=== PATIENT | female | born 1990 | race Caucasian/White ===

== ENCOUNTER 2017-01-25 09:26 | Inpatient (IN) | payer BC, OTHER ==
[~2017-01-25] VITALS: Ht 162.6 cm; Wt 52.2 kg
[2017-01-25] MEDS ORDERED: LOPERAMIDE HCL 2 MG CAPSULE PO PRN ×2 (18:45)
[2017-01-25] MEDS ORDERED: DICYCLOMINE HCL 20 MG TABLET PO PRN (18:45)
[2017-01-25] MEDS ORDERED: MAG HYDROX/AL HYDROX/SIMETH 30 ML LIQUID UDC PO PRN (18:45)
[2017-01-25] MEDS ORDERED: ACETAMINOPHEN 325 MG TABLET PO PRN (18:45)
[2017-01-25] MEDS ORDERED: ONDANSETRON ODT 4 MG TAB.RAPDIS SL PRN (18:45)
[2017-01-25] MEDS ORDERED: MAGNESIUM HYDROXIDE 30 ML LIQUID UDC PO PRN (18:45)
[2017-01-25] MEDS ORDERED: LORAZEPAM 1 MG TABLET PO PRN ×2 (18:45)
[2017-01-25] MEDS ORDERED: IBUPROFEN 600 MG TABLET PO PRN (18:45)
[2017-01-25] MEDS ORDERED: LORAZEPAM 2 MG/1 ML VIAL IM PRN (18:45)
[2017-01-25] MEDS ORDERED: MIRALAX 17 GM POWD.PACK PO PRN (18:45)
[2017-01-25] MEDS ORDERED: diphenhydrAMINE 50 MG CAPSULE PO PRN (18:45)
[2017-01-25] MEDS ORDERED: HYDROXYZINE PAMOATE 25 MG CAPSULE PO PRN (18:45)
[2017-01-25] MEDS ORDERED: ONDANSETRON 4 MG/2 ML VIAL IM PRN (18:45)
[2017-01-25] MEDS ORDERED: METHOCARBAMOL 750 MG TABLET PO PRN (18:45)
--- NOTE | 2017-01-25 19:20 | NUR ---
1919 Preadmission assessment done by day shift RN, Corey Zaidi. ADMISSION NOTE: 26 year old, thinly-built but well-nourished, caucasion female, admitted ambulatory, in his room # 305 for Heroin, Methamphetamine and (prescribed) Xanax withdrawal. Gait is steady. Patient's color is pink and his skin is warm, dry and intact. Patient responds to nurse's greeting and introduction with, " Hi, how are you?" Patient is oriented to person, place, day and her personal situation. Reoriented to date and time. Patient's lung sounds are clear bilaterally and hypoactive bowel sounds are noted X 4 abdominal Quads, per auscultation. Patient moves all her extremities fully WNL. Patient denies any pain and she states that she has a history of Hepatitis C, anxiety, depression, eating disorder and old back injuries, from sports and a fall, years ago. Patient states also that she has had 1 seizure, drug-related, in 2014. Patient states that she is from [facility], where she has a "therapist" by the name of Morteza Sanchze and a PCP by the name of Dr. Quinn. Patient is 5 feet and 4 inches and she weighs 115 lbs. Patient states that she has been to multiple treatment facilities, however she is unable to exactly name them at this time, except for: (1) [facility], September 2015, 2 days, [place], [place] and (2) [facility], " a few years ago", 6 months, [place], [place] Patient uses (1) Heroin daily, snorted or IV, 3 to 4 grams. Last use 01/25/17 3 grams. Patient has been using Heroin on/off "since age 13" (2) Methamphetamine daily, smoked, 1 gram. Last use, 01/25/17, 1 gram. Patient has been using Methamphetamine on/off " for a few years" (3) Xanax, daily, oral, 2 to 4 mg. Last use, 01/25/17, 2.5 mg . Patient states that she has been using Xanax " for a few years and that this drug is prescribed for her. Patient states that her longest period of sobriety was 6 months, " some years ago" . Vital signs are: 97.7-111-16 126/80, O2 Sat 99%, COWS 6. Patient took fluids and sandwich snack. Patient oriented to her room, nurse call light and her immediate surroundings. Patient is cooperative with minimal prompting and she is verbally appropriate for the most part, however she can become easily irritated, uncooperative and slightly agitated, depending on questions asked of her during admit assess. Bed is locked and in lowest position, bed rails are up X 1 and call light within patient's easy reach.
[2017-01-25] MEDS ORDERED: ALBU18HF2 IH (19:32)
[2017-01-25] MEDS ORDERED: CARB12DR OP (19:33)
[2017-01-25 20:00] VITALS: BP 126/80
[2017-01-25 20:23] LABS: *URINE HCG, QUAL NEGATIVE (NEGATIVE)
[2017-01-25 20:30] LABS: *AMPHETAMINE, URINE POSITIVE (NEGATIVE); *BARBITURATE, URINE NEGATIVE (NEGATIVE); *CANNABINOID, URINE NEGATIVE (NEGATIVE); *COCCAINE, URINE NEGATIVE (NEGATIVE); *OPIATE, URINE POSITIVE (NEGATIVE); *PHENCYCLIDINE SCREEN,URINE NEGATIVE (NEGATIVE)
[2017-01-25] MEDS ORDERED: LORAZEPAM 1 MG TABLET PO SCH (21:00)
[2017-01-26] VITALS: BP 102/61
[2017-01-26 04:00] VITALS: BP 101/59
--- NOTE | 2017-01-26 06:30 | NUR ---
0630 Patient had an uneventful night, sleeping a total of 5 hours. She had 2 voids and no stools. Total intake was 1.183 ml p.o. No prn medications given this shift. Marko/ARCELIA afebrile, COWS 3 at 0400. Patient is presently sleeping comfortably with eyes closed and respirations even, unlabored at 12. Addendum: 01/26/17 at 0746 by TIFFANY ROONEY RN CIWA is 3, not COWS.
--- NOTE | 2017-01-26 07:05 | NUR ---
Patient is sleeping soundly with eyes closed and respirations quiet, deep, unlabored at 12. COWS, CIWA deferred.
--- NOTE | 2017-01-26 07:06 | NUR ---
Start Of Shit Report received from shift mgr. Pt is a 26 y/o female admitted on 01/25/17 for Heroin, Methamphetamines and Xanax dependency/withdrawals. Pt is full code regular diet on fall and seizure precautions. Denies any food or drug allergies. Pt is placed on a 5 day Ativan and a 5 day Subutex taper. Pt reports Hx of seizures, last one at age 17 d/t d/w. Pt received no PRN medication last night per shift mgr nurse. Her last COWS 3 and CIWA 3. Fluids encouraged to facilitate the detox process.Upon assessment pt laying in bed, eyes closed unlabored even breathing. All safety measures in place per hospital policy. Bed in lowest position, side rails up x2, call-light within reach. Will continue to monitor and provide support.
[2017-01-26 08:00] VITALS: BP 111/66
[2017-01-26 08:03] LABS: BASOPHILS % (AUTO) 0.6 % (0.0-2.0); EOSINOPHILS # (AUTO) 0.6 K/uL (0.0-0.7); EOSINOPHILS % (AUTO) 11.4 % (0.0-7.0); HEMATOCRIT 30.1 % (37-47); HEMOGLOBIN 9.8 G/DL (12.0-16.0); LYMPHOCYTES # (AUTO) 1.6 K/UL (0.8-4.8); LYMPHOCYTES % (AUTO) 32.3 % (20.5-51.5); MEAN CORPUSCULAR HEMOGLOBIN 28.5 UUG (27.0-31.0); MEAN CORPUSCULAR HGB CONC 33 g/dL (32.0-37.0); MEAN CORPUSCULAR VOLUME 87.3 FL (81.0-99.0); MONOCYTES # (AUTO) 0.3 K/UL (0.1-1.30); MONOCYTES % (AUTO) 5.6 % (0.0-11.0); NEUTROPHILS # (AUTO) 2.6 K/UL (1.8-8.9); NEUTROPHILS % (AUTO) 50.1 % (38.5-71.5); PLATELET COUNT (AUTO) 174 K/UL (150-450); RED BLOOD CELL COUNT(AUTO) 3.45 MIL/UL (4.2-5.4); WHITE BLOOD COUNT (AUTO) 5.1 K/UL (4.0-11.2)
[2017-01-26] MEDS ORDERED: TUBERCULIN,PURIF.PROT.DERIV. 5 TU/0.1 ML TEST ID ONE (09:00)
[2017-01-26 09:03] LABS: ALANINE AMINOTRANSFERASE 16 U/L (14-59); ALKALINE PHOSPHATASE 80 U/L (50-136); AMYLASE 26 U/L (25-115); ASPARTATE AMINOTRANSFERASE 17 U/L (15-37); BILIRUBIN,TOTAL 0.2 mg/dL (0.2-1.0); CARBON DIOXIDE 28 mmol/L (21-32); CHLORIDE 103 mmol/L (98-107); CREATININE 0.7 mg/dL (0.6-1.3); GLUCOSE 99 mg/dL (74-106); LIPASE 75 U/L (73-393); MAGNESIUM 2.2 mg/dL (1.8-2.4); TOTAL PROTEIN, SERUM 7.2 g/dL (6.4-8.2); UREA NITROGEN, BLOOD 9 mg/dL (7-18)
[2017-01-26 09:08] LABS: ETHANOL < 3 MG/DL (0-0)
[2017-01-26] MEDS: LORAZEPAM 1 MG TABLET PO SCH ×4 (09:52→20:24)
[2017-01-26] MEDS: MULTIVITAMINS,THERAPEUTIC TABLET PO SCH (09:52)
[2017-01-26] MEDS: BUPRENORPHINE HCL 2 MG TAB.SUBL SL SCH ×4 (09:52→20:25)
[2017-01-26 11:01] LABS: THYROID STIMULATING HORMONE 0.625 mIU/mL (0.358-3.740)
[2017-01-26 12:00] VITALS: BP 114/72
[2017-01-26 16:00] VITALS: BP 122/82
--- NOTE | 2017-01-26 17:55 | NUR ---
Held Medication Upon assessment pt was too sedated, Pt's 1700 scheduled medications held. MD contacted and notified. all needs met will continue to monitor.
[2017-01-26] MEDS ORDERED: ALBUTEROL INH PRN (19:00)
--- NOTE | 2017-01-26 19:15 | NUR ---
START OF SHIFT Received 26 year old female admitted on 01/25/17 for Xanax, Heroin and Methamphetamine dependency. Pt is full code with NKA. Pt reports PMHx of Hep C, history of back injuries x2, and anxiety and depression. She reports using Heroin (snort/IV) 3-4 grams daily since age 13. Last dose was 3 grams on 01/25/17. Xanax 2-4 mg daily for a few years. Last dose was 2.5 mg on 01/25/17. And Methamphetamine 1 gram daily for a few years. Last dose was 1 gram on 01/25/17. She reports a drug related seizure at age 17. She is currently receiving 5 day Ativan and 5 day Subutex taper and tolerating well. Per endorsement, pt did not receive or request PRN medications. His 1700 dose was held d/t pt was too sedated. Pt is alert and oriented x4, breathing is even and unlabored. Pt is safe with bed locked in lowest position, side rails up x2 and call light within reach. Will continue to monitor.
[2017-01-26] MEDS: CLONIDINE HCL 0.1 MG TABLET PO PRN (19:24)
--- NOTE | 2017-01-26 19:24 | NUR ---
PRN CLONIDINE Pt complains of anxiety/agitation. Pt observed with piloerection, chills and sweats. PRN Clonidine administered as ordered. Breathing even and unlabored, safety measures in place. Will continue to monitor effectiveness.
--- NOTE | 2017-01-26 19:34 | NUR ---
End Of Shift Report given to lozenge dough mixer nurse. Pt is a 26 y/o female admitted on 01/25/17 for Heroin, Methamphetamines and Xanax dependency/withdrawals. Pt is full code regular diet on fall and seizure precautions. Denies any food or drug allergies. continues on a 5 day Ativan and a 5 day Subutex taper. Pt reports Hx of seizures, last one at age 17 d/t d/w. Pt received no PRN medication during day shift. Her last COWS 7 and CIWA 5. Fluids encouraged to facilitate the detox process. Detox medication effective at reducing withdrawal symptoms. Patient encouraged to attend group therapies/sessions to learn new coping skills to recent relapse, patient denies SI/HI. Pt ate all of her meals her total fluid intake was 855mlwith 2 void and 0 bowel movement Pts scheduled 1700 medications held because pt was too sedated notified and aware Safety measures in place. Call light kept within reach. Patient endorsed to lozenge dough mixer nurse, all pertinent information discussed
[2017-01-26 20:00] VITALS: BP 123/77
--- NOTE | 2017-01-26 20:24 | NUR ---
PRN CLONIDINE REASSESSMENT PRN Clonidine effective. Pt states " yeah I feel a little better" Breathing even and unlabored, respirations 16, safety measures in place. Will continue to monitor.
[2017-01-27] VITALS: BP 100/64
--- NOTE | 2017-01-27 | NUR ---
COWS/CIWA DEFERRED COWS/CIWA deferred. Pt lying in bed with eyes closed noted to be asleep. Respirations 16, breathing is even and unlabored. Safety measures in place. Will continue to monitor.
[2017-01-27 04:00] VITALS: BP 115/70
--- NOTE | 2017-01-27 07:05 | NUR ---
START OF SHIFT Pt is a 26 year old female admitted on 01/25/17 for Xanax, Heroin and Methamphetamine dependency. Pt is full code with NKA. Pt reports PMHx of Hep C, history of back injuries x2, and anxiety and depression. She reports using Heroin (snort/IV) 3-4 grams daily since age 13. She is currently on day 2/5 of her Ativan and Subutex taper and tolerating well. She experienced s/s of withdrawal such as piloerection, chills, sweats, anxiety and agitation. At 1924 she received PRN Clonidine. She slept a total of 9 hrs, Intake: 240 mL Void:0 BM:0 COWS: 10, CIWA: 5. Pt remains alert and oriented x4, breathing is even and unlabored. Pt is safe with bed locked in lowest position, side rails up x2 and call light within reach. Endorsed to oncoming shift. Addendum: 01/27/17 at 0706 by JAXSON MENDES RN ERROR IN CHARTING
--- NOTE | 2017-01-27 07:07 | NUR ---
Start of Shift Notes: Received patient in her room. Laying in bed with eyes closed. Chest movement noted. Breathing even and unlabored. No SOB noted. Skin warm and dry to touch. Abdomen soft and non-distended with (+) BS in all 4 quadrants. No complains of N/V/D or constipation noted. Noted with complains of abdominal cramping. Bladder non-distended. No complains of dysuria noted. Voids independently. Ambulatory ad brandon with steady gait. Patient is a 26 year old female admitted for opiate and methamphetamine and BZO dependence who was placed on a 5-day Ativan and 5-day Subutex taper as ordered. No adverse reactions noted. Has past medical hx of Hep C, Hx of 2 back injuries, hx of anxiety, depression. On fall and seizure precautions. NKA. FULL CODE. Regular diet. Educated patient on the current plan of care for the day and the medication regimen. Encouraged oral fluid intake and encouraged group participation to learn new skills to prevent relapse. Will continue to monitor closely.
[2017-01-27 08:00] VITALS: BP 103/50
[2017-01-27] MEDS: LORAZEPAM 1 MG TABLET PO SCH ×3 (08:19→20:05)
[2017-01-27] MEDS: CLONIDINE HCL 0.1 MG TABLET PO PRN ×2 (08:20→19:36)
[2017-01-27] MEDS: BUPRENORPHINE HCL 2 MG TAB.SUBL SL SCH ×3 (08:20→20:05)
[2017-01-27] MEDS: MULTIVITAMINS,THERAPEUTIC TABLET PO SCH (08:20)
--- NOTE | 2017-01-27 08:20 | NUR ---
PRN Robaxin/Bentyl and Clonidine 0.1mg PO given: COWS 16; CIWA 10. Patient presented with 7/10 body aches, abdominal cramps. FL 88 resting, sweating, anxiety, agitation, restless legs and piloerection of the skin. Medicated patient with Robaxin 750 mg PO, Bentyl 20 mg PO and Clonidine 0.1mg PO as ordered. Will monitor for effectiveness.
--- NOTE | 2017-01-27 09:20 | NUR ---
Re-assessment: Per patient, PRN Robaxin, Clonidine and Bentyl were effective in reducing muscle aches, anxiety, sweating, chills, hot flashes and abdominal cramps. COWS 13/CIWA 7. made aware.
[2017-01-27] MEDS ORDERED: BUPRENORPHINE HCL 2 MG TAB.SUBL SL ONE (10:00)
[2017-01-27] MEDS ORDERED: LORAZEPAM 1 MG TABLET PO ONE (10:00)
[2017-01-27] MEDS ORDERED: CLONIDINE HCL 0.1 MG TABLET PO ONE (10:00)
--- NOTE | 2017-01-27 10:06 | NUR ---
Subutex 4mg SL x 1 and Ativan 1 mg PO x 1 given: COWS 13/CIWA 7. Dr. Good aware with orders to administer x 1 Subutex 4 mg and Ativan 1 mg PO as ordered. Will monitor for effectiveness.
--- NOTE | 2017-01-27 10:36 | NUR ---
Re-assessment: Subutex 4mg SL x 1 COWS 9. Less anxiety, less restlessness, and pupil size normal. x 1 Subutex 4mg SL was effective in reducing patient's withdrawal symptoms.
--- NOTE | 2017-01-27 11:06 | NUR ---
Re-assessment: x1 Ativan 1 mg PO Patient's CIWA 3. Less anxiety noted, less anxiety. PRN Ativan was effective in reducing patient's withdrawal symptoms.
[2017-01-27 12:00] VITALS: BP 97/57
--- NOTE | 2017-01-27 13:29 | NUR ---
Psych Consult: New orders Patient was seen and examined by Dr. Goodman with orders to start patient on Seroquel 150 mg for sleep. Orders noted and carried out.
[2017-01-27 14:43] LABS: HEPATITIS B SURFACE AG Negative (Negative)
--- NOTE | 2017-01-27 15:17 | NUR ---
Hep C results: Patient's hep C results received and shows ">11.0H." Patient revealed upon admission that she has hx of being Hep C positive.
[2017-01-27 16:00] VITALS: BP 103/54
[2017-01-27 16:48] LABS: BASOPHILS % (AUTO) 0.5 % (0.0-2.0); EOSINOPHILS # (AUTO) 0.3 K/uL (0.0-0.7); EOSINOPHILS % (AUTO) 7.4 % (0.0-7.0); HEMATOCRIT 34.6 % (37-47); HEMOGLOBIN 11.3 G/DL (12.0-16.0); LYMPHOCYTES # (AUTO) 1.8 K/UL (0.8-4.8); LYMPHOCYTES % (AUTO) 38.2 % (20.5-51.5); MEAN CORPUSCULAR HEMOGLOBIN 28.7 UUG (27.0-31.0); MEAN CORPUSCULAR HGB CONC 33 g/dL (32.0-37.0); MEAN CORPUSCULAR VOLUME 87.8 FL (81.0-99.0); MONOCYTES # (AUTO) 0.2 K/UL (0.1-1.30); MONOCYTES % (AUTO) 4.3 % (0.0-11.0); NEUTROPHILS # (AUTO) 2.3 K/UL (1.8-8.9); NEUTROPHILS % (AUTO) 49.6 % (38.5-71.5); PLATELET COUNT (AUTO) 229 K/UL (150-450); RED BLOOD CELL COUNT(AUTO) 3.95 MIL/UL (4.2-5.4); WHITE BLOOD COUNT (AUTO) 4.6 K/UL (4.0-11.2)
[2017-01-27 17:33] LABS: CREATININE 0.8 mg/dL (0.6-1.3); MAGNESIUM 1.9 mg/dL (1.8-2.4)
--- NOTE | 2017-01-27 18:56 | NUR ---
End of Shift Notes: Patient is a 26 year old female admitted for opiate/methamphetamine and BZO dependence who was placed on a 5-day Ativan and 5-day Subutex taper as ordered. Patient is on her 2nd day of her taper and tolerating well. No adverse reactions noted. Has past medical hx of hep C, back injuries x 2, anxiety and depression. Prior to admission, patient was using 3-4 grams of Heroin, 1 gram of methamphetamine and 2-4mg of Xanax. VS monitored closely q 4 hours. No significant abnormalities noted. Withdrawal symptoms were closely monitored. Initial COWS 16/CIWA 10 patient presented with piloerection of the skin, muscle aches and pains, anxiety, agitation, restlessness, pupil dilation, and abdominal cramps. Mediated patient with Robaxin, Bentyl and Clonidine at 0820 with help after 1 hour. Patient was given x 1 extra dose of Subutex 4 mg SL and Ativan 1 mg PO for COWS 13, CIWA 7 with help after 1 hour. Last COWS 5/CIWA 3. Per patient Subutex and Ativan has been helping her with her withdrawal symptoms. Unable to participate in group and therapy sessions due to her withdrwal symptoms. Oral intake poor. All needs met and attended. Will continue to monitor closely.
--- NOTE | 2017-01-27 19:15 | NUR ---
START OF SHIFT Received 26 year old female admitted on 01/25/17 for Xanax, Heroin and Methamphetamine dependency. Pt is full code with NKA. Pt reports PMHx of Hep C, history of back injuries x2, and anxiety and depression. She reports using Heroin (snort/IV) 3-4 grams daily since age 13. Last dose was 3 grams on 01/25/17. Xanax 2-4 mg daily for a few years. Last dose was 2.5 mg on 01/25/17. And Methamphetamine 1 gram daily for a few years. Last dose was 1 gram on 01/25/17. She reports a drug related seizure at age 17. She is currently receiving 5 day Ativan and 5 day Subutex taper and tolerating well. Per endorsement, pt received PRN medications of Robaxin, Bentyl and Clonidine. She also has a new order for routine Seroquel 150 mg. Pt is alert and oriented x4, breathing is even and unlabored. Pt is safe with bed locked in lowest position, side rails up x2 and call light within reach. Will continue to monitor.
--- NOTE | 2017-01-27 19:36 | NUR ---
PRN CLONIDINE Pt complains of anxiety, agitation, sweats and chills. PRN Clonidine administered as ordered. Breathing is even and unlabored, safety measures in place. Will continue to monitor effectiveness of medication.
[2017-01-27 20:00] VITALS: BP 105/63
[2017-01-27] MEDS: QUETIAPINE FUMARATE 100 MG TABLET PO SCH (20:05)
[2017-01-27] MEDS: GABAPENTIN 300 MG CAPSULE PO SCH (20:05)
--- NOTE | 2017-01-27 20:36 | NUR ---
PRN CLONIDINE REASSESSMENT PRN Clonidine effective. Pt states " I feel a lot better" Pt appears less anxious/agitated. Breathing even and unlabored,respirations 16, safety measures in place. Will continue to monitor.
[2017-01-28] VITALS: BP 99/68
[2017-01-28 04:00] VITALS: BP 101/66
--- NOTE | 2017-01-28 05:17 | NUR ---
PRN VISTARIL Pt complains of anxiety and is restless in bed. PRN Vistaril administered as ordered. Breathing even and unlabored, safety measures in place. Will monitor effectiveness.
--- NOTE | 2017-01-28 06:17 | NUR ---
PRN VISTARIL REASSESSMENT PRN Vistaril effective. Pt lying in bed with eyes closed noted to be asleep. No facial grimacing noted. Breathing even and unlabored, safety measures in place. Will monitor.
--- NOTE | 2017-01-28 07:10 | NUR ---
END OF SHIFT Pt is a 26 year old female admitted on 01/25/17 for Xanax, Heroin and Methamphetamine dependency. Pt is full code with NKA. She is currently on day 3 of her 5 day Ativan and 5 day Subutex taper and tolerating well. At 1936 pt received PRN Clonidine. At 0517 she received PRN Vistaril. Pt observed with withdrawal symptoms of chills, diaphoresis, fatigue and anxiety, but reports that taper medications are effective in relieving her symptoms. She slept a total of 9 hrs, Intake:1124 mL Void:x2 BM:0 COWS:6 CIWA:4. Pt remains alert and oriented x4, breathing is even and unlabored. Pt is safe with bed locked in lowest position, side rails up x2 and call light within reach. Will endorse to oncoming shift.
--- NOTE | 2017-01-28 07:11 | NUR ---
Start of Shift Notes: Received patient in her room. Laying in bed with eyes closed. Chest movement noted. Breathing even and unlabored. No SOB noted. Skin warm and dry to touch. Abdomen soft and non-distended with (+) BS in all 4 quadrants. No complains of N/V/D or constipation noted. Noted with complains of abdominal cramping. Bladder non-distended. No complains of dysuria noted. Voids independently. Ambulatory ad brandon with steady gait. Patient is a 26 year old female admitted for opiate and methamphetamine and BZO dependence who was placed on a 5-day Ativan and 5-day Subutex taper as ordered. No adverse reactions noted. Has past medical hx of Hep C, Hx of 2 back injuries, hx of anxiety, depression. On fall and seizure precautions. NKA. FULL CODE. Regular diet. Educated patient on the current plan of care for the day and the medication regimen. Encouraged oral fluid intake and encouraged group participation to learn new skills to prevent relapse. Per endorsement from night nurse, patient slept for 9 hours. PRN Vistaril and PRN Clonidine was given during the night. Will continue to monitor closely.
[2017-01-28 08:00] VITALS: BP 91/55
[2017-01-28] MEDS ORDERED: BUPRENORPHINE HCL 2 MG TAB.SUBL SL SCH (09:00)
[2017-01-28] MEDS: MULTIVITAMINS,THERAPEUTIC TABLET PO SCH (09:20)
[2017-01-28] MEDS: LORAZEPAM 1 MG TABLET PO SCH ×4 (09:20→20:38)
[2017-01-28] MEDS: GABAPENTIN 300 MG CAPSULE PO SCH ×3 (09:20→20:38)
[2017-01-28 12:00] VITALS: BP 101/62
[2017-01-28] MEDS ORDERED: BUPRENORPHINE HCL 2 MG TAB.SUBL SL ONE (12:00)
--- NOTE | 2017-01-28 12:39 | NUR ---
Subutex 4 mg SL given x 1: Patient's COWS increased from 5 to 9. Presented with restless legs, muscle aches, chills, and hot flashes. Medicated patient with x 1 dose of Subutex 4 mg SL per MD.
--- NOTE | 2017-01-28 13:09 | NUR ---
Re-assessment: COWS 6. Less restlessness and less anxiety noted. Subutex 4 mg SL x 1 was effective.
[2017-01-28] MEDS: BUPRENORPHINE HCL 2 MG TAB.SUBL SL SCH ×2 (14:30→20:38)
[2017-01-28] MEDS: BACLOFEN 10 MG TABLET PO SCH ×2 (14:30→20:38)
[2017-01-28 16:00] VITALS: BP 105/56
--- NOTE | 2017-01-28 18:46 | NUR ---
End of Shift Notes: Patient is a 26 year old female admitted for opiate/methamphetamine and BZO dependence who was placed on a 5-day Ativan and 5-day Subutex taper as ordered. Patient is on her 2nd day of her taper and tolerating well. No adverse reactions noted. Has past medical hx of hep C, back injuries x 2, anxiety and depression. Prior to admission, patient was using 3-4 grams of Heroin, 1 gram of methamphetamine and 2-4mg of Xanax. VS monitored closely q 4 hours. No significant abnormalities noted. Withdrawal symptoms were closely monitored. Initial COWS 5/CIWA 4 mild muscle aches and pains, anxiety, restlessness, pupil dilation. Patient was given x 1 extra dose of Subutex 4 mg SL at 1239 for COWS 9 with hel after 30 min. Last COWS 4/CIWA 2. Per patient Subutex and Ativan has been helping her with her withdrawal symptoms. Unable to participate in group and therapy sessions due to her withdrwal symptoms. Oral intake fair. All needs met and attended. Will continue to monitor closely.
--- NOTE | 2017-01-28 19:15 | NUR ---
START OF SHIFT Received 26 year old female admitted on 01/25/17 for Xanax, Heroin and Methamphetamine dependency. Pt is full code with NKA. Pt reports PMHx of Hep C, history of back injuries x2, and anxiety and depression. She reports using Heroin (snort/IV) 3-4 grams daily since age 13. Last dose was 3 grams on 01/25/17. Xanax 2-4 mg daily for a few years. Last dose was 2.5 mg on 01/25/17. And Methamphetamine 1 gram daily for a few years. Last dose was 1 gram on 01/25/17. She reports a drug related seizure at age 17. She is currently receiving 5 day Ativan and 5 day Subutex taper and tolerating well. Per endorsement, pt received one time order of Subutex 4 mg at 12:30. Pt is alert and oriented x4, breathing is even and unlabored. Pt is safe with bed locked in lowest position, side rails up x2 and call light within reach. Will continue to monitor.
[2017-01-28 20:00] VITALS: BP 106/62
[2017-01-28] MEDS: QUETIAPINE FUMARATE 100 MG TABLET PO SCH (20:38)
--- NOTE | 2017-01-28 22:39 | NUR ---
PRN BENADRYL Pt complains of inability to fall asleep. PRN Benadryl administered as ordered. Breathing even and unlabored, safety measures in place. Will continue to monitor effectiveness.
--- NOTE | 2017-01-28 23:39 | NUR ---
PRN BENADRYL REASSESSMENT PRN medication effective. Pt is lying in bed with eyes closed noted to be asleep. No facial grimacing. Respirations 16, breathing is even and unlabored. Safety measures in place. Will continue to monitor.
[2017-01-29] VITALS: BP 119/74
[2017-01-29 04:00] VITALS: BP 110/70
--- NOTE | 2017-01-29 04:00 | NUR ---
COWS/CIWA DEFERRED COWS/CIWA deferred d/t pt lying in bed with eyes closed noted to be asleep. Respirations 16, breathing even and unlabored. Pt safe with bed locked in lowest position, side rails up x2 and call light within reach. Will continue to monitor.
--- NOTE | 2017-01-29 07:18 | NUR ---
END OF SHIFT Pt is a 26 year old female admitted on 01/25/17 for Xanax, Heroin and Methamphetamine dependency. Pt is full code with NKA. She continues on her 5 day Ativan and 5 day Subutex taper and is tolerating well. At 2239 she received PRN Benadryl d/t inability to fall asleep. She slept a total of 7 hrs, Intake: 1450 mL, Void: x2, BM: 0. COWS:4, CIWA:2. Pt remains alert and oriented x4, breathing is even and unlabored. Pt is safe with bed locked in lowest position, side rails up x2 and call light within reach. Endorsed to oncoming shift.
--- NOTE | 2017-01-29 07:47 | NUR ---
BEGINNING OF SHIFT Patient endorsement report received from casino shift manager nurse, all pertinent information discussed. patient is a 26 year old Female admitted on 01/28/2017 with admitting Dx: Opiate/BZO dependence. Patient currently ongoing taper of 5 day Ativan and 5 day Subutex taper as ordered, patient is scheduled to begin day 4 of taper this morning. per nights shift patient received PRN:Bendaryl medication effective as per casino shift manager Patient with last ciwa score of: 2 and last cow score of: 4. Patient slept for 7. hours. Patient received awake, alert and oriented x4, educated regarding plan of care for the day and medication regimen. safety measures in place. call light kept with in reach, will continue to monitor.
[2017-01-29 08:01] VITALS: BP 96/60
[2017-01-29] MEDS: GABAPENTIN 300 MG CAPSULE PO SCH ×2 (08:53→14:18)
[2017-01-29] MEDS: MULTIVITAMINS,THERAPEUTIC TABLET PO SCH (08:53)
[2017-01-29] MEDS: BACLOFEN 10 MG TABLET PO SCH ×3 (08:53→21:04)
[2017-01-29] MEDS: BUPRENORPHINE HCL 2 MG TAB.SUBL SL SCH ×3 (08:53→21:04)
[2017-01-29] MEDS: LORAZEPAM 1 MG TABLET PO SCH ×3 (08:53→21:04)
[2017-01-29 12:07] LABS: *HCV QUANT HCV Not Detected IU/mL (.)
[2017-01-29 14:09] VITALS: BP 107/68
[2017-01-29 18:27] VITALS: BP 104/60
--- NOTE | 2017-01-29 18:32 | NUR ---
END OF SHIFT Patient alert and oriented x4, vital signs stable during shift. Patient with admitting Dx: meth/bzo/Opiate dependence. Patient continues on 5 day Ativan taper and 5 day Subutex taper as ordered , and is currently on day 4 of taper, well tolerated, no ASE noted. 0900 assessment patient presented with: mild bone and joint aches, stuffy nose, stomach cramps, irritable, anxiety, barely sweating and mild agitation with cow score of: 5 and ciwa score of: 5. 1300 assessment patient presented with: Heart rate of 92, mild bone and joint aches, moist eyes, mild anxiety, mild agitation, and barely sweating with cow score of: 3 and ciwa score of: 3. 1700 assessment patient presented with: Heart rate of 90 mild bone and joint aches, moist eyes, mild anxiety, mild agitation, and barely sweating with cow score of: 3 and ciwa score of: 3. Patient was administered no PRNs medications during shift. Patient encouraged adequate PO fluid intake as tolerated. Encouraged to attend group therapies/sessions to learn new coping skills to prevent relapse denies any SI/HI. Safety measures in place. call light kept with in reach. all needs met and rendered. patient endorsed to retail shift supervisor nurse, all pertinent information discussed.
[2017-01-29 20:00] VITALS: BP 115/62
--- NOTE | 2017-01-29 20:00 | NUR ---
Start of Shift Pt is a 26 year old female admitted for Opiate/Benzo dependence, placed on 5 day Ativan and 5 day Subutex taper. Pt reported using Heroin via snort/IV 3-4g/daily, Xanax PO 2-4gm/daily and Methamphetamine 1g/daily. PMH: Hep C, anxiety, depression and hx of back injuries. NKA, regular diet, fall/seizure precautions seizure at age 17 d/t withdrawal and full code. Upon assessment, pt presented with anxiety, reports feeling fatigued, reports muscle aches, abdominal cramping, skin noted with moderate sweat, face flushed, respirations even/unlabored, denies SOB/chest pain, bowel sounds active x4, abdomen soft. Safety measures in place, call light within reach, side rails up x2, bed locked and in low position. Will continue to monitor.
[2017-01-29] MEDS ORDERED: GABAPENTIN 300 MG CAPSULE PO SCH (21:00)
[2017-01-29] MEDS: QUETIAPINE FUMARATE 100 MG TABLET PO SCH (21:03)
[2017-01-30] VITALS: BP 118/65
--- NOTE | 2017-01-30 | NUR ---
Vital Signs BP 118/65, pulse 109, respirations 18, Spo2 96%, temp 98.1, no pain 0/10 COWS/CIWA deferred to pt sleeping to assess while pt is awake as ordered. Safety measures in place. Will continue to monitor.
[2017-01-30 04:00] VITALS: BP 119/54
--- NOTE | 2017-01-30 04:00 | NUR ---
Vital Signs BP 119/54, pulse 54, respirations 16, Spo2 97%, temp 97.9, no pain 0/10 COWS/CIWA deferred to pt sleeping to assess while pt is awake as ordered. Safety measures in place. Will continue to monitor.
--- NOTE | 2017-01-30 07:00 | NUR ---
End of Shift Pt is a 26 year old female admitted for Opiate/Benzo dependence, placed on 5 day Ativan and 5 day Subutex taper. Pt reported using Heroin via snort/IV 3-4g/daily, Xanax PO 2-4gm/daily and Methamphetamine 1g/daily. PMH: Hep C, anxiety, depression and hx of back injuries. NKA, regular diet, fall/seizure precautions seizure at age 17 d/t withdrawal and full code. During shift, pt presented with anxiety, reports feeling fatigued, reports muscle aches, abdominal cramping, skin noted with moderate sweat, face flushed scheduled taper medications administered, COWS 6 and CIWA 4. No PRN medications administered. Pt slept for 8 hours, intake of 651 ml PO and voids x2. Safety measures in place, call light within reach, side rails up x2, bed locked and in low position. Endorsed to day shift nurse.
--- NOTE | 2017-01-30 07:57 | NUR ---
BEGINNING OF SHIFT Patient endorsement report received from communications director nurse, all pertinent information discussed. patient is a 26 year old Female admitted on 01/28/2017 with admitting Dx: Opiate/BZO dependence. Patient currently ongoing taper of 5 day Ativan and 5 day Subutex taper as ordered, patient is scheduled to begin day 5 of taper this morning. per nights shift patient received no PRNs During communications director. Patient with last ciwa score of: 4 and last cow score of: 6. Patient slept for 8. hours. Patient received awake, alert and oriented x4, educated regarding plan of care for the day and medication regimen. safety measures in place. call light kept with in reach, will continue to monitor.
[2017-01-30 08:06] VITALS: BP 119/66
[2017-01-30] MEDS: BUPRENORPHINE HCL 2 MG TAB.SUBL SL SCH ×2 (08:54→21:28)
[2017-01-30] MEDS: GABAPENTIN 300 MG CAPSULE PO SCH ×3 (08:54→21:21)
[2017-01-30] MEDS: LORAZEPAM 1 MG TABLET PO SCH ×2 (08:54→21:22)
[2017-01-30] MEDS: MULTIVITAMINS,THERAPEUTIC TABLET PO SCH (08:54)
[2017-01-30] MEDS: BACLOFEN 10 MG TABLET PO SCH ×3 (08:54→21:22)
[2017-01-30] MEDS: CLONIDINE HCL 0.1 MG TABLET PO PRN (11:30)
--- NOTE | 2017-01-30 11:30 | NUR ---
PRN CLONIDINE/ZOFRAN/MIRALAX Patient reported increase in anxiety and agitation, and reported two episodes of emesis and c/o feeling nausea. As per patient c/o feeling constipated. Patient provided with calming reassurance and non pharmacological interventions with no relief, administered clonidine as ordered for anxiety. Administered Zofran for N/V and administered miralax as ordered for constipation, will monitor effectiveness of medication.
--- NOTE | 2017-01-30 12:30 | NUR ---
CLONIDINE/ZOFRAN REASSESSMENT Patient reports feeling calm, no c/o anxiety or agitation, medication was effective. Zofran effective no c/o N/V noted. Per patient no bowel movement, will continue to monitor. patient encouraged increase in PO fluid intake as tolerated.
[2017-01-30 13:08] VITALS: BP 119/76
[2017-01-30] MEDS: CLONIDINE HCL 0.1 MG TABLET PO SCH ×2 (14:48→21:22)
[2017-01-30 17:21] VITALS: BP 127/79
--- NOTE | 2017-01-30 18:58 | NUR ---
END OF SHIFT Patient alert and oriented x4, vital signs stable during shift. Patient with admitting Dx: meth/bzo/Opiate dependence. Patient continues on 5 day Ativan taper and 5 day Subutex taper as ordered , and is currently on day 5 of taper, well tolerated, no ASE noted. 0900 assessment patient presented with: Heart rate of 96, c/o chills, mild bone and joint aches, moist eyes, mild anxiety, mild agitation, and barely sweating with cow score of: 5 and ciwa score of: 4. 1300 assessment patient presented with: heart rate of 90, c/o chills, mild bone and joint aches, moist eyes, mild anxiety, mild agitation, and barely sweating with cow score of: 5 and ciwa score of: 4. 1700 assessment patient presented with: heart rate of 82, c/o chills, mild anxiety , and mild agitation with cow score of: 3 and ciwa score of: 2. Patient was administered PRN: clonidine, and Zofran as ordered, medications with relief, one hour post administration, also administered miralax, endorsed to folder gluer operator nurse, to monitor effectiveness of miralax. Patient encouraged adequate PO fluid intake as tolerated. Encouraged to attend group therapies/sessions to learn new coping skills to prevent relapse denies any SI/HI. Safety measures in place. call light kept with in reach. all needs met and rendered. patient endorsed to folder gluer operator nurse, all pertinent information discussed.
[2017-01-30 20:00] VITALS: BP 120/80
--- NOTE | 2017-01-30 20:00 | NUR ---
Start of Shift Pt is a 26 year old female admitted for Opiate/Benzo dependence, placed on 5 day Ativan and 5 day Subutex taper. Pt reported using Heroin via snort/IV 3-4g/daily, Xanax PO 2-4gm/daily and Methamphetamine 1g/daily. PMH: Hep C, anxiety, depression and hx of back injuries. NKA, regular diet, fall/seizure precautions seizure at age 17 d/t withdrawal and full code. Upon assessment, pt is in emotional volatility, reports feeling anxious, skin noted with moderate sweat, face flushed, respirations even/unlabored, denies SOB/chest pain, bowel sounds active x4, abdomen soft. Safety measures in place, call light within reach, side rails up x2, bed locked and in low position. Will continue to monitor.
[2017-01-30] MEDS: QUETIAPINE FUMARATE 100 MG TABLET PO SCH (21:23)
[2017-01-31] VITALS (7 sets, daily range): BP systolic 98–123; BP diastolic 60–91
--- NOTE | 2017-01-31 | NUR ---
Vital Sign BP 115/67, pulse 84, respirations 20, Spo2 98%, temp 97.6, no pain reported 0/10 CIWA/COWS deferred d/t pt sleeping to ass while pt is awake as ordered. Safety measures in place, will continue to monitor.
--- NOTE | 2017-01-31 04:00 | NUR ---
Vital Sign BP 109/70, pulse 87, respirations 14, Spo2 96%, temp 97.9, no pain reported 0/10 CIWA/COWS deferred d/t pt sleeping - to asses while pt is awake as ordered. Safety measures in place, will continue to monitor.
--- NOTE | 2017-01-31 07:00 | NUR ---
End of Shift Pt is a 26 year old female admitted for Opiate/Benzo dependence, placed on 5 day Ativan and 5 day Subutex taper. Pt reported using Heroin via snort/IV 3-4g/daily, Xanax PO 2-4gm/daily and Methamphetamine 1g/daily. PMH: Hep C, anxiety, depression and hx of back injuries. NKA, regular diet, fall/seizure precautions seizure at age 17 d/t withdrawal and full code. During, pt presented to be in emotional volatility, reported feeling anxious, skin noted with moderate sweat, face flushed scheduled taper medications administered, effective in management of s/s of withdrawal as reported by pt, COWS 3 and CIWA 3. No PRN medications administered during shift. Pt slept for 7 hours, intake of 1355 ml Po and voids x2. Safety measures in place, call light within reach, side rails up x2, bed locked and in low position. Endorsed to day shift nurse.
--- NOTE | 2017-01-31 07:38 | NUR ---
BEGINNING OF SHIFT Patient endorsement report received from shift mechanic nurse, all pertinent information discussed. patient is a 26 year old Female admitted on 01/28/2017 with admitting Dx: Opiate/BZO dependence. Patient completed Ativan and Subutex taper as ordered, will monitor closely during shift. Patient with last ciwa score of: 3 and last cow score of: 3. Patient slept for 7 hours. Patient received no PRNs during shift mechanic. Patient received awake, alert and oriented x4, educated regarding plan of care for the day and medication regimen. safety measures in place. call light kept with in reach, will continue to monitor.
[2017-01-31] MEDS: CLONIDINE HCL 0.1 MG TABLET PO SCH ×4 (09:00→20:22)
[2017-01-31] MEDS ORDERED: BUPRENORPHINE HCL 2 MG TAB.SUBL SL SCH (09:00)
[2017-01-31] MEDS: GABAPENTIN 300 MG CAPSULE PO SCH ×2 (09:04→14:40)
[2017-01-31] MEDS: BACLOFEN 10 MG TABLET PO SCH ×3 (09:04→20:22)
[2017-01-31] MEDS: MULTIVITAMINS,THERAPEUTIC TABLET PO SCH (09:05)
[2017-01-31] MEDS: BUPRENORPHINE HCL 2 MG TAB.SUBL SL SCH ×3 (13:19→20:28)
[2017-01-31] MEDS: KETOROLAC TROMETHAMINE 30 MG INJ IM PRN (14:41)
--- NOTE | 2017-01-31 14:41 | NUR ---
PRN TORADOL Patient c/o increase in pain in back area and bone and joint aches 04/14, provided with non pharmacological with no relief, administered Toradol injection as ordered, well tolerated, will monitor effectiveness.
--- NOTE | 2017-01-31 15:41 | NUR ---
TORADOL REASSESSMENT patient reports medication with relief, current pain level 0/10, will continue to monitor closely.
[2017-01-31] MEDS: LORAZEPAM 1 MG TABLET PO SCH ×2 (16:56→20:21)
--- NOTE | 2017-01-31 18:55 | NUR ---
END OF SHIFT Patient alert and oriented x4, vital signs stable during shift. Patient with admitting Dx: meth/bzo/Opiate dependence. Patient was seen and examined by Dr. shankar, patient completed 5 day Ativan and 5 day Subutex taper. Taper was extended as per Dr. shankar, well tolerated, no ASE noted. 0900 assessment patient presented with: anxiety and irritability with cow score of: 2 and ciwa score of: 3. 1300 assessment patient presented with: heart rate of 85, c/ chills, severe bone and joint aches, irritable, anxiety, barely sweating, and mild agitation, with ciwa score of: 6 and cow score of: 6. 1700 assessment patient presented with: : heart rate of 88, c/ chills, severe bone and joint aches, irritable, anxiety, barely sweating, and mild agitation, with ciwa score of: 6 and cow score of: 6. Patient was administered PRN:Toradol Injection as ordered for severe bone and joint aches, medication effective one hour post administration. Patient encouraged adequate PO fluid intake as tolerated. Encouraged to attend group therapies/sessions to learn new coping skills to prevent relapse denies any SI/HI. Safety measures in place. call light kept with in reach. all needs met and rendered. patient endorsed to application internship nurse, all pertinent information discussed.
--- NOTE | 2017-01-31 20:00 | NUR ---
Start of Shift Pt is a 26 year old female admitted for Opiate/Benzo dependence, placed on 5 day Ativan and 5 day Subutex taper. Pt reported using Heroin via snort/IV 3-4g/daily, Xanax PO 2-4gm/daily and Methamphetamine 1g/daily. PMH: Hep C, anxiety, depression and hx of back injuries. NKA, regular diet, fall/seizure precautions seizure at age 17 d/t withdrawal and full code. Upon assessment, pt reports feeling mildly anxious, however states, "I feel much better today then the days before", reports mild muscle aches, face flushed, respirations even/unlabored, denies SOB/chest pain, bowel sounds active x4, abdomen soft. Safety measures in place, call light within reach, side rails up x2, bed locked and in low position. Will continue to monitor.
[2017-01-31] MEDS: QUETIAPINE FUMARATE 100 MG TABLET PO SCH (20:21)
[2017-01-31] MEDS ORDERED: GABAPENTIN 300 MG CAPSULE PO SCH (21:00)
[2017-02-01] VITALS: BP 139/89
--- NOTE | 2017-02-01 | NUR ---
Vital Sign BP 139/89, pulse 84, respirations 16, Spo2 97%, temp 97.6, no pain reported 0/10 CIWA/COWS deferred d/t pt sleeping - to asses while pt is awake as ordered. Safety measures in place, will continue to monitor.
[2017-02-01 04:00] VITALS: BP 117/78
--- NOTE | 2017-02-01 04:00 | NUR ---
Vital Sign BP 117/78, pulse 85, respirations 14, Spo2 98%, temp 98.1, no pain reported 0/10 CIWA/COWS deferred d/t pt sleeping - to asses while pt is awake as ordered. Safety measures in place, will continue to monitor.
--- NOTE | 2017-02-01 07:00 | NUR ---
End of Shift Pt is a 26 year old female admitted for Opiate/Benzo dependence, placed on 5 day Ativan and 5 day Subutex taper. Pt reported using Heroin via snort/IV 3-4g/daily, Xanax PO 2-4gm/daily and Methamphetamine 1g/daily. PMH: Hep C, anxiety, depression and hx of back injuries. NKA, regular diet, fall/seizure precautions seizure at age 17 d/t withdrawal and full code. During shift, pt reported feeling mildly anxious, reported mild muscle aches, face flushed - scheduled taper medications administered, effective in management of s/s of withdrawal, COWS 5 and CIWA 5. No PRN medications administered during shift. Pt slept for 4hours, intake of 1092 ml PO and voids x2. Safety measures in place, call light within reach, side rails up x2, bed locked and in low position. Endorsed to day shift nurse.
--- NOTE | 2017-02-01 07:15 | NUR ---
Start of shift note SBAR report rcv'd. Pt was admitted for opiate and benzo dependence and methamphetamine abuse. Pt has a PMHx of hep C, anxiety, depression and a back injury. Pt is a full code, on a regular diet and NKA. Pt subutex and ativan taper have recently been extended d/t severe withdrawal symptoms. Pt is currently sleeping in his bed, respirations are even and unlabored, bed is locked in a low position, call light within reach, will continue to monitor pt. All needs addressed at this time.
[2017-02-01 08:00] VITALS: BP 112/66
[2017-02-01] MEDS ORDERED: BUPRENORPHINE HCL 2 MG TAB.SUBL SL SCH (09:00)
[2017-02-01] MEDS ORDERED: LORAZEPAM 1 MG TABLET PO SCH (09:00)
[2017-02-01] MEDS: GABAPENTIN 300 MG CAPSULE PO SCH ×3 (09:59→21:06)
[2017-02-01] MEDS: MULTIVITAMINS,THERAPEUTIC TABLET PO SCH (09:59)
[2017-02-01] MEDS: CLONIDINE HCL 0.1 MG TABLET PO SCH ×3 (09:59→21:05)
[2017-02-01] MEDS: BACLOFEN 10 MG TABLET PO SCH ×3 (10:00→21:05)
--- NOTE | 2017-02-01 10:00 | NUR ---
Late administration Pt slept in late and requested that her medications be given at a later time. Medications administered a few minutes late per pt request. Will continue to monitor pt.
[2017-02-01 12:00] VITALS: BP 113/73
[2017-02-01] MEDS ORDERED: CLON0.1T14 PO (13:39)
[2017-02-01] MEDS ORDERED: DIPH50CA37 PO (13:39)
[2017-02-01] MEDS ORDERED: HYDR-3895 PO (13:39)
[2017-02-01] MEDS ORDERED: DICY20TA28 PO (13:39)
[2017-02-01] MEDS ORDERED: Baclofen PO (13:39)
[2017-02-01] MEDS ORDERED: Gabapentin PO (13:39)
[2017-02-01] MEDS ORDERED: QUET100T PO (13:39)
[2017-02-01] MEDS ORDERED: Ibuprofen PO (13:39)
[2017-02-01] MEDS: DICYCLOMINE HCL 20 MG TABLET PO SCH ×2 (15:29→21:04)
[2017-02-01] MEDS ORDERED: MAGNESIUM CITRATE 296 ML BOTTLE PO ONE ×2 (15:30→20:00)
--- NOTE | 2017-02-01 15:30 | NUR ---
MD communication Pt states that she has pain 6/10 generalized body aches, pt states that she wants her shot of toradol. Educated pt that per MD order, toradol is for pain 8/10 or greater. Offered pt motrin, tylenol and robaxin. Pt refused and requested toradol. Notified Dr Good, gave ok for pt to have one time shot for pain 6/10. Pt also c/o constipation, notified Dr Good, order magnesium citrate PO x 1 now, orders entered, MD unable to enter orders at this time.
--- NOTE | 2017-02-01 15:30 | NUR ---
Pt refused medication Pt did not want to take the magnesium citrate at this time. Medication rescheduled per pt request.
--- NOTE | 2017-02-01 15:45 | NUR ---
PRN administration Pt states that she has generalized body aches and lower back pain of 6/10. Toradol administered to L deltoid. Pt tolerated well. Will continue to monitor pt.
[2017-02-01] MEDS: KETOROLAC TROMETHAMINE 30 MG INJ IM PRN (15:47)
[2017-02-01 16:00] VITALS: BP 128/76
--- NOTE | 2017-02-01 16:15 | NUR ---
Reassessment Pt states that her pain level is now a 4/10 and that she is more comfortable at this time. Will continue to monitor pt. Encouraged pt to rest to allow medication to take full effect.
--- NOTE | 2017-02-01 18:54 | NUR ---
End of shift note Pt was admitted for opiate and benzo dependence and methamphetamine abuse. Pt has a PMHx of hep C, anxiety, depression and a back injury. Pt is a full code, on a regular diet and NKA. Pt is scheduled to discharge tomorrow, pt has not provided urine for discharge UDS at this time. Pt encouraged to provide a UDS. Pt at times states that she does not want to discharge tomorrow, Dr Good is aware, states for nurse to notify MD if pt has a COWS/CIWA >12. Orders were entered. Pt had a PRN dose of toradol to mange her chronic pain and generalized body aches. Pt is scheduled to have magnesium citrate tonight to manage her constipation s/s. Pt had a recent COWS of 7 and CIWA of 4 at 1600. Pt ate 100% of her breakfast and dinner and 50% of lunch plus multiple snacks throughout the shift. Pt was compliant with the treatment plan and participated in all groups and activities throughout the shift. Will endorse SBAR to oncoming shift.
[2017-02-01 19:12] LABS: *AMPHETAMINE, URINE NEGATIVE (NEGATIVE); *BARBITURATE, URINE NEGATIVE (NEGATIVE); *CANNABINOID, URINE NEGATIVE (NEGATIVE); *COCCAINE, URINE NEGATIVE (NEGATIVE); *OPIATE, URINE NEGATIVE (NEGATIVE); *PHENCYCLIDINE SCREEN,URINE NEGATIVE (NEGATIVE)
[2017-02-01 20:00] VITALS: BP 116/69
[2017-02-01] MEDS: QUETIAPINE FUMARATE 100 MG TABLET PO SCH (21:06)
[2017-02-02] VITALS: BP 114/66
--- NOTE | 2017-02-02 04:00 | NUR ---
Patient refused to be awakened for V/S to be taken at this time.
--- NOTE | 2017-02-02 07:53 | NUR ---
START OF SHIFT Received report from security shift manager nurse. 26 year old female admitted on 01/25/17 for heroin, methamphetamine and xanax dependence. Pt is A/O x3, denies allergies, follows a regular diety and is full code. Reports medical hx of Hep C, back injury and anxiety and depression. Pt has completed ordered 5 day Ativan and 5 day Subutex taper and is medically cleared for discharge. V/S remain WNL. Skin remains intact. Most recent COWS are 5 and CIWA 3 at 0000. No PRN medication needed or administered at night. Pt slept for 5 hours. Mg citrate was administered and effective, pt reports M x2. All needs met at this time. Will continue to monitor.
[2017-02-02 08:00] VITALS: BP 106/64
[2017-02-02] MEDS: MULTIVITAMINS,THERAPEUTIC TABLET PO SCH (09:20)
[2017-02-02] MEDS: GABAPENTIN 300 MG CAPSULE PO SCH (09:20)
[2017-02-02] MEDS: CLONIDINE HCL 0.1 MG TABLET PO SCH (09:20)
[2017-02-02] MEDS: BACLOFEN 10 MG TABLET PO SCH (09:20)
[2017-02-02] MEDS: DICYCLOMINE HCL 20 MG TABLET PO SCH (09:20)
[2017-02-02 12:44] VITALS: BP 98/56
--- NOTE | 2017-02-02 14:24 | NUR ---
Clinician encouraged client to attend the 3:30 group. Client responded that she was leaving in a little while so could not attend.
--- NOTE | 2017-02-02 14:32 | NUR ---
D/C NOTE Pt is A/O x4. V/S remain WNL. Pt denies SI/HI or hallucinations. Pt shows no s/s of acute withdrawal at this time, and is stable. MD has medically cleared pt for d/c. Education on Hepatitis C, smoking cessation and medication side effects provided. Pt verbalizes understanding. All pt belongings are in belonging bag, including prescriptions, and home medications. Refuses PNU vaccination. Pt is being accompanied by PROPERTY HANDLER at this time to be transported to rehab. All needs met.
== END 2017-02-02 14:32 | disposition other institution (70) | DRG 895 ==
LOC: SRC 17:49
PROVIDERS: ADMIT Internal Medicine; ATTEND Internal Medicine
PROC: HZ2ZZZZ Detoxification Services for Substance Abuse Treatment (ICD-10-PCS; principal; 2017-01-25)
PROC: HZ31ZZZ Individual Counseling for Substance Abuse Treatment, Behavioral (ICD-10-PCS; 2017-01-26)
PROC: HZ41ZZZ Group Counseling for Substance Abuse Treatment, Behavioral (ICD-10-PCS; 2017-01-30)
DX: F11.23 Opioid dependence with withdrawal (principal); F13.230 Sedative, hypnotic or anxiolytic dependence with withdrawal, uncomplicated; F15.23 Other stimulant dependence with withdrawal; F17.210 Nicotine dependence, cigarettes, uncomplicated; B19.20 Unspecified viral hepatitis C without hepatic coma; F90.9 Attention-deficit hyperactivity disorder, unspecified type; Z82.49 Family history of ischemic heart disease and other diseases of the circulatory system; G47.00 Insomnia, unspecified; F14.10 Cocaine abuse, uncomplicated; F41.9 Anxiety disorder, unspecified; D64.9 Anemia, unspecified; J45.20 Mild intermittent asthma, uncomplicated; F50.9 Eating disorder, unspecified
CPT/HCPCS: 36415; 70030-TC; 80307; 80324; 80346; 80361; 82746; 83550; 83690; 83735; 84443; 84703; 85025; 86580; 86592; 86705; 86803; 87340; 87521; 87806; G6040-TC; J1885; J2405; Q0162; Q0163